=== PATIENT | female | born 1960 | race Caucasian/White ===

== ENCOUNTER 2016-09-12 04:04 | Emergency (ER) | payer OTHER ==
[~2016-09-12] VITALS: Ht 167.6 cm; Wt 63.6 kg
[~2016-09-12 04:04] MED LIST: CALC1TAB87 PO; DILT31TA PO; LEVOTAB PO; LISI-515 PO; OMEP20TA PO; POTA8TAB3 PO
[2016-09-12 04:12] VITALS: BP 141/81; PULSE 94; RESP 18; TEMP 98.6; O2SAT 99
[2016-09-12] MEDS ORDERED: FERR1TAB36 PO (04:15)
[2016-09-12] MEDS ORDERED: SODIUM CHLORIDE 0.9% FLUSH 5 ML FLUSH IVF PRN (04:15)
--- NOTE | 2016-09-12 04:27 | PD ---
HPI . Abdominal pain Chief Complaint: Abdominal Pain Time Seen by Provider: 04:06 Travel History International Travel<30 days: No Contact w/Intl Traveler<30days: No Traveled to known affect area: No History of Present Illness HPI Patient presents with the acute onset of abdominal pain. She denies any associated nausea or vomiting. She denies diarrhea. She denies urinary tract symptoms. She denies fever. 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) Diminished Hearing: No Endocrine: No Gastrointestinal Disorders: Yes (frequent diarrhea ) Genitourinary: Yes (incontinent at times ) Hypertension: Yes Immune Disorder: No Musculoskeletal: No Neurologic: Yes Psychiatric: No Reproductive: No Respiratory: No Past Surgical History Abdominal Surgery: Yes (appendectomy ) Gynecologic Surgery: Yes (hysterectomy ) Hysterectomy: Yes Social History Alcohol Use: No Tobacco Use: No Substance Use: No Allergies-Medications (Allergen,Severity, Reaction): Coded Allergies: Codeine (Verified Allergy, Unknown, 09/12/16) Reported Meds & Prescriptions Reported Meds & Active Scripts Active Potassium Chloride CR (Potassium Chloride) 8 Meq Tab 8 Meq PO DAILY Cardizem (Diltiazem HCl) 30 Mg Tab 30 Mg PO Q6HR Reported Iron (Ferrous Sulfate) 325 Mg Tab 325 Mg PO DAILY Take Calcium 600 with Vitamin D (Calcium Carbonate-Cholecalciferol) 600-400 mg-Unit Tab 2 Tab PO DAILY Levocetirizine 5 Mg Tab 5 Mg PO DAILY Omeprazole 20 Mg Tab 20 Mg PO BID Lisinopril 20 Mg Tab 20 Mg PO DAILY Review of Systems ROS Limitations: Poor Historian (patient is mentally retarded and possibly has autism.) Except as stated in HPI: all other systems reviewed are Neg General / Constitutional: No: Fever, Chills Respiratory: No: Cough, Shortness of Breath Gastrointestinal: Positive: Abdominal Pain, No: Nausea, Vomiting, Diarrhea Genitourinary: No: Urgency, Frequency, Dysuria Physical Exam Narrative GENERAL: This is a mentally challenged patient who is able to tell me what is bothering her tonight and who is able to answer simple yes/no questions. SKIN: Warm and dry. HEAD: Atraumatic. Normocephalic. EYES: Pupils equal and round. ENT: No nasal bleeding or discharge. Mouth is dry. NECK: Trachea midline. Neck is supple. CARDIOVASCULAR: Regular rate and rhythm. Heart sounds are normal. RESPIRATORY: No accessory muscle use. Lungs are clear with full air movement throughout. GASTROINTESTINAL: Abdomen soft, non-tender, nondistended. MUSCULOSKELETAL: No obvious deformities. No edema. NEUROLOGICAL: Awake and alert. No obvious cranial nerve deficits. Motor grossly within normal limits. Normal speech. PSYCHIATRIC: Appropriate mood and affect. Data Data Last Documented VS Vital Signs Date Time Temp Pulse Resp B/P Pulse Ox O2 Delivery O2 Flow Rate FiO2 09/12/16 04:12 98.6 94 18 141/81 99 Room Air Orders Complete Blood Count With Diff (09/12/16 04:13) Comprehensive Metabolic Panel (09/12/16 04:13) Lipase (09/12/16 04:13) Lactic Acid (09/12/16 04:13) Urinalysis - C+S If Indicated (09/12/16 04:13) Ct Abd/Pel W Iv Contrast(Rout) (09/12/16 04:13) Iv Access Insert/Monitor (09/12/16 04:13) Ecg Monitoring (09/12/16 04:13) Oximetry (09/12/16 04:13) Sodium Chloride 0.9% Flush (Ns Flush) (09/12/16 04:15) Iohexol 350 Inj (Omnipaque 350 Inj) (09/12/16 05:55) Labs Laboratory Tests Test 09/12/16 09/12/16 04:25 04:30 White Blood Count 7.6 TH/MM3 Red Blood Count 4.22 MIL/MM3 Hemoglobin 12.2 GM/DL Hematocrit 36.8 % Mean Corpuscular Volume 87.2 FL Mean Corpuscular Hemoglobin 28.9 PG Mean Corpuscular Hemoglobin 33.2 % Concent Red Cell Distribution Width 14.2 % Platelet Count 291 TH/MM3 Mean Platelet Volume 5.2 FL Neutrophils (%) (Auto) 64.2 % Lymphocytes (%) (Auto) 30.1 % Monocytes (%) (Auto) 4.6 % Eosinophils (%) (Auto) 0.8 % Basophils (%) (Auto) 0.3 % Neutrophils # (Auto) 4.9 TH/MM3 Lymphocytes # (Auto) 2.3 TH/MM3 Monocytes # (Auto) 0.3 TH/MM3 Eosinophils # (Auto) 0.1 TH/MM3 Basophils # (Auto) 0.0 TH/MM3 CBC Comment DIFF FINAL Differential Comment Sodium Level 137 MEQ/L Potassium Level 3.7 MEQ/L Chloride Level 103 MEQ/L Carbon Dioxide Level 26.9 MEQ/L Anion Gap 7 MEQ/L Blood Urea Nitrogen 15 MG/DL Creatinine 0.84 MG/DL Estimat Glomerular Filtration 70 ML/MIN Rate Random Glucose 119 MG/DL Lactic Acid Level 0.9 mmol/L Calcium Level 9.3 MG/DL Total Bilirubin 0.3 MG/DL Aspartate Amino Transf 17 U/L (AST/SGOT) Alanine Aminotransferase 18 U/L (ALT/SGPT) Alkaline Phosphatase 74 U/L Total Protein 7.4 GM/DL Albumin 3.3 GM/DL Lipase 171 U/L Urine Color YELLOW Urine Turbidity CLEAR Urine pH 6.0 Urine Specific [place] 1.010 Urine Protein NEG mg/dL Urine Glucose (UA) NEG mg/dL Urine Ketones NEG mg/dL Urine Occult Blood NEG Urine Nitrite NEG Urine Bilirubin NEG Urine Urobilinogen LESS THAN 2.0 MG/DL Urine Leukocyte Esterase TRACE Urine RBC 1 /hpf Urine WBC 3 /hpf Urine Squamous Epithelial 2 /hpf Cells Urine Bacteria RARE /hpf Urine Mucus FEW /lpf Microscopic Urinalysis Comment CULT NOT INDICATED MDM Medical Decision Making Medical Screen Exam Complete: Yes Emergency Medical Condition: Yes Medical Record Reviewed: Yes (patient was admitted here in mid June with sepsis, acute kidney injury, dehydration. CT of her abdomen was suggestive of ischemic colitis.) Differential Diagnosis Differential diagnosis of abdominal pain includes but is not limited to gastritis, pancreatitis, hepatitis, gastroenteritis, gallbladder disease, constipation, urinary retention, UTI, peptic ulcer disease, diverticulitis or appendicitis Narrative Course Patient presents for evaluation of the acute onset of upper abdominal pain. She has no associated symptoms. CBC has a normal white blood count. UA is negative. Chemistries are unremarkable. Lactic acid level is normal. CT-->"CONCLUSION: Question mild wall thickening involving portions of descending colon. This may reflect mild colitis." However, the patient has a normal white blood count and lactic acid. She has no complaints of diarrhea. Clinically, she does not have colitis. Patient states that she is feeling well at this point. Diagnosis Primary Impression: Abdominal pain Qualified Code: R10.13 - Epigastric pain Disposition: DISCHARGE HOME Condition: Stable Nataliia Loco MD Sep 12, 2016 04:27
[2016-09-12 04:38] LABS: AUTOMATED NEUTROPHIL # 4.9 TH/MM3 (1.8-7.7); BASOPHIL % 0.3 % (0.0-2.0); EOSINOPHIL # 0.1 TH/MM3 (0-0.4); EOSINOPHIL % 0.8 % (0.0-4.0); HEMATOCRIT 36.8 % (35.0-46.0); HEMO FLAGS DIFF FINAL; LYMPH % 30.1 % (9.0-44.0); LYMPHOCYTE # 2.3 TH/MM3 (1.0-4.8); MEAN CELL VOLUME 87.2 FL (80.0-100.0); MEAN CORPUSCULAR HEMOGLOBIN 28.9 PG (27.0-34.0); MEAN CORPUSCULAR HGB CONC 33.2 % (32.0-36.0); MONO % 4.6 % (0.0-8.0); NEUT % 64.2 % (16.0-70.0); PLATELET COUNT 291 TH/MM3 (150-450); RED BLOOD COUNT 4.22 MIL/MM3 (4.00-5.30); RED CELL DISTRIBUTION WIDTH 14.2 % (11.6-17.2); WHITE BLOOD COUNT 7.6 TH/MM3 (4.0-11.0)
[2016-09-12 04:48] LABS: BACTERIA, URINE RARE /hpf; BLOOD, URINE NEG (NEG); COMMENT (UR) CULT NOT INDICATED; CULTURE IF INDICATED CULT NOT INDICATED; GLUCOSE,URINE NEG (NEG); KETONE, URINE NEG (NEG); MUCUS URINE FEW /lpf (OCC); NITRITE,URINE NEG (NEG); SQUAMOUS EPITHELIAL CELL URINE 2 /hpf (0-5); URINE COLOR YELLOW (YELLW/STRAW)
[2016-09-12 04:59] LABS: ALT (GPT) 18 U/L (10-53); ANION GAP 7 MEQ/L (5-15); AST (GOT) 17 U/L (15-37); BICARBONATE 26.9 MEQ/L (21.0-32.0); BLOOD UREA NITROGEN 15 MG/DL (7-18); CHLORIDE 103 MEQ/L (98-107); GLOMERULAR FILTRATION RATE 70 ML/MIN (>89); POTASSIUM 3.7 MEQ/L (3.5-5.1); SODIUM (NA) 137 MEQ/L (136-145)
[2016-09-12 05:02] LABS: ALKALINE PHOSPHATASE 74 U/L (45-117); TOTAL BILIRUBIN ADULT 0.3 MG/DL (0.2-1.0)
[2016-09-12] MEDS ORDERED: IOHEXOL 350 MG/ML 10 ML VIAL (for RAD DIAG) IV ONE (05:55)
--- NOTE | 2016-09-12 06:07 | RADRPT ---
EXAM DATE/TIME: 09/12/2016 05:53 [facility] COMPARISON: CT ABDOMEN & PELVIS W/O CONTRAST, July 01, 2016, 13:03. INDICATIONS : Sudden onset of abdominal pain. IV CONTRAST: 66 cc Omnipaque 350 (iohexol) IV ORAL CONTRAST: No oral contrast ingested. RADIATION DOSE: 4.99 CTDIvol (mGy) MEDICAL HISTORY : Hypertension. SURGICAL HISTORY : Appendectomy. Hysterectomy. ENCOUNTER: Initial ACUITY: 1 day PAIN SCALE: 8/10 LOCATION: abdomen TECHNIQUE: Volumetric scanning of the abdomen and pelvis was performed. Using automated exposure control and ad justment of the mA and/or kV according to patient size, radiation dose was kept as low as reasonably achievable to obtain optimal diagnostic quality images. FINDINGS: LOWER LUNGS: The visualized lower lungs are clear. LIVER: Multiple hepatic cysts are again noted. No suspicious mass or biliary ductal dilatation. Multiple jordan cified gallstones aerated SPLEEN: Normal size without lesion. PANCREAS: Within normal limits. KIDNEYS: Normal in size and shape. There is no mass, stone or hydronephrosis. ADRENAL GLANDS: Within normal limits. VASCULAR: There is no aortic aneurysm. BOWEL/MESENTERY: May be mild wall thickening involving portions of the descending colon. The bowel structures otherwis e focally unremarkable. ABDOMINAL WALL: Within normal limits. RETROPERITONEUM: There is no lymphadenopathy. BLADDER: No wall thickening or mass. REPRODUCTIVE: Uterus surgically absent. No evidence of pelvic mass. Minimal free fluid. INGUINAL: There is no lymphadenopathy or hernia. MUSCULOSKELETAL: Within normal limits for patient age. CONCLUSION: Question mild wall thickening involving portions of descending colon. This may reflect mild colitis. Mick Harris MD on September 12, 2016 at 6:01 Board Certified Radiologist. This report was verified electronically.
== END 2016-09-12 09:34 | disposition home or self-care (01) ==
LOC: NEPC 04:04
DX: R10.9 Unspecified abdominal pain (principal); I10 Essential (primary) hypertension; F79 Unspecified intellectual disabilities
CPT/HCPCS: 74177; 80053; 81001; 83605; 83690; 85025; 99284; Q9967

== ENCOUNTER 2018-04-21 15:43 | Inpatient (IN) ==
--- NOTE | 2018-04-21 16:19 | ED ---
HPI General Chief Complaint: Fall Stated Complaint: fall/hit head History of Present Illness HPI Narrative: The patient was seen and examined in the presence of the nurse. This patient is brought in because she had a fall. She has history of mental retardation and frequent falls and uses a rolling walker. She she had dizzy and lightheaded and had a fall. She was using her walker at the time. She struck her left brow. Unclear if she lost consciousness. She does complain of a left-sided headache. No neck symptoms. She denies any chest pain or pressure or tightness or heaviness. He presents in A. fib with RVR. She takes no blood thinners. No alleviating factors. No exacerbating factors. Duration 3 hours Related Data Home Medications Medication Instructions Recorded Confirmed calcium carbonate-vitamin D3 2 tab PO DAILY 04/21/18 04/21/18 [Calcium 600 with Vitamin D3] cholecalciferol (vitamin D3) 1,000 unit PO DAILY 04/21/18 04/21/18 [Vitamin D3] levocetirizine 5 mg PO DAILY 04/21/18 04/21/18 omeprazole 20 mg PO BID 04/21/18 04/21/18 potassium chloride 8 meq PO DAILY 04/21/18 04/21/18 Allergies Allergy/AdvReac Type Severity Reaction Status Date / Time codeine Allergy Unknown Unverified 04/09/17 18:42 Review of Systems ROS: all other systems reviewed are negative [facility] Medical History Medical History GERD (gastroesophageal reflux disease) (Acute) H/O: hysterectomy (Acute) Mental retardation (Acute) Social History Social History Substance History: No History of Abuse Smoking Status: Never smoker How Often Do You Have a Drink Containing Alcohol: Never Recent Travel in [facility] within the Last 8 Weeks: No Recent Out of Country Travel within the Last 8 Weeks: No Exam Narrative Exam Narrative: GENERAL: Thin pleasant mentally challenged patient in no apparent distress. SKIN: Focused skin assessment reveals no rash and nodules. Skin is Warm and dry. HEAD: She has swelling and an abrasion at the left brow. Normocephalic. EYES: Pupils equal and round. No scleral icterus. No injection or drainage. ENT: No nasal bleeding or discharge. Mucous membranes pink and moist. NECK: Trachea midline. No JVD. No midline tenderness CARDIOVASCULAR: Irregularly irregular rhythm. No murmur appreciated. Heart rate 160 RESPIRATORY: No accessory muscle use. Clear to auscultation. Breath sounds equal bilaterally. GASTROINTESTINAL: Abdomen soft, non-tender, nondistended. Hepatic and splenic margins not palpable. MUSCULOSKELETAL: No obvious deformities. No clubbing. No cyanosis. No edema. NEUROLOGICAL: Awake and alert. No obvious cranial nerve deficits. Motor grossly within normal limits. Normal speech. PSYCHIATRIC: Appropriate mood and affect; insight and judgment poor . Course Initial Documented Vital Signs Temperature 97.9 F 04/21/18 15:48 Pulse Rate 85 04/21/18 15:48 Respiratory Rate 16 04/21/18 15:48 Blood Pressure 132/93 H 04/21/18 15:48 Pulse Oximetry 95 04/21/18 15:48 Last Documented Vital Signs Temperature 97.9 F 04/21/18 15:48 Pulse Rate 95 H 04/21/18 17:49 Respiratory Rate 16 04/21/18 17:49 Blood Pressure 119/77 04/21/18 17:49 Pulse Oximetry 98 04/21/18 17:49 Critical Care Time Critical Care Time: Yes Total Critical Care Time: 36 Attestation: Aggregate critical care time was 36 minutes. Time to perform other separately billable procedures was not included in the critical care time. My time did not include minutes spent treating any other patients simultaneously or on activities that did not directly contribute to the patient's treatment. The services I provided to this patient were to treat and/or prevent clinically significant deterioration that could result in: Cardiopulmonary arrest, cardiogenic shock, intracranial hemorrhage I provided critical care services requiring my management, as noted below: Chart data review, documentation time, medication orders and management, vital sign assessments/reviewing monitor data, ordering and reviewing lab tests, ordering and interpreting/reviewing x-rays and diagnostic studies, care of the patient and discussion of the patient with the admitting physicians. Medical Decision Making MDM Narrative Medical decision making narrative: IV placed and labs sent. I reviewed her EKG which shows A. fib with RVR and a rapid rate. As best I can tell if this is a new onset. I am giving her 15 mg IV Cardizem for rate control. Extended cardiac monitoring shows A. fib with RVR I ordered brain CT due to her traumatic injury On recheck she still has rapid A. fib but it is better than 160s. It is down to 130s-140. Giving her additional 10 mg IV Cardizem and starting a Cardizem drip which we will titrate to control her rate. She will require admission for new onset A. fib with RVR causing lightheadedness /possible syncope with fall and head injury. She is requiring IV Cardizem drip and multiple boluses to control her rate. At time of admission her heart rate is 100 on Cardizem drip. Labs are reviewed. CT is negative, I discussed with the hospitalist. Medical Screen Exam Complete: Yes Emergency Medical Condition: Yes Medical Records Medical records reviewed: Yes I reviewed the patient's medical records. Reviewed her history and physical cardiology consultation. There is no mention of atrial fibrillation. She had a sinus tachycardia at that time. Lab Data Lab results reviewed: Yes I reviewed the patient's lab results. Result diagrams: 04/21/18 16:33 04/21/18 16:33 Lab Results 04/21/18 04/21/18 Range/Units 16:33 16:33 CBC w Diff Auto diff final WBC 9.4 (4.0-11.0) th/mm3 RBC 4.99 (4.00-5.30) mil/mm3 Hgb 15.7 H (11.6-15.3) gm/dL Hct 45.0 (35.0-46.0) % MCV 90.2 (80.0-100.0) fL MCH 31.4 (27.0-34.0) pg MCHC 34.8 (32.0-36.0) % RDW 12.3 (11.6-17.2) % Plt Count 253 (150-450) th/mm3 MPV 6.6 L (7.0-11.0) fL Neut % (Auto) 79.7 H (16.0-70.0) % Lymph % (Auto) 15.3 (9.0-44.0) % Yell % (Auto) 4.3 (0.0-8.0) % Eos % (Auto) 0.3 (0.0-4.0) % Baso % (Auto) 0.4 (0.0-2.0) % Neut # (Auto) 7.6 (1.8-7.7) th/mm3 Lymph # (Auto) 1.4 (1.0-4.8) th/mm3 Yell # (Auto) 0.4 (0.0-0.9) th/mm3 Eos # (Auto) 0.0 (0.0-0.4) th/mm3 Baso # (Auto) 0.0 (0.0-0.2) th/mm3 WBC Differential . Differential Comment . Sodium 135 L (136-145) meq/L Potassium 3.9 (3.5-5.1) meq/L Chloride 102 (98-107) meq/L Carbon Dioxide 22.6 (21.0-32.0) meq/L Anion Gap 10 (5-15) meq/L BUN 14 (7-18) mg/dL Creatinine 0.94 (0.50-1.00) mg/dL Estimated GFR 61 L (>89) mL/min Random Glucose 119 H (74-106) mg/dL Calcium 9.3 (8.5-10.1) mg/dL Total Bilirubin 0.8 (0.2-1.0) mg/dL AST 25 (15-37) U/L ALT 16 (10-53) U/L Alkaline Phosphatase 85 (45-117) U/L Total Protein 8.0 (6.4-8.2) g/dL Albumin 3.9 (3.4-5.0) g/dL Imaging Data Radiologist's impression: Head CT 04/21/18 16:11 CONCLUSION: 1. No acute intracranial abnormality. . Discharge Plan Discharge Disposition Patient Disposition: 30 Still Patient Discharge Details Diagnosis: New onset a-fib, Atrial fibrillation with RVR Physicians Team ED Provider: Hever Samuel Primary Care Provider: Michael Lopez Rxs /Orders / Referrals /Forms Prescriptions: No Action cholecalciferol (vitamin D3) [Vitamin D3] 1,000 unit Capsule 1,000 unit PO DAILY RF: 0 potassium chloride 8 mEq Capsule, Extended Release 8 meq PO DAILY RF: 0 calcium carbonate-vitamin D3 [Calcium 600 with Vitamin D3] 600 mg(1,500mg) - 200 unit Tablet 2 tab PO DAILY RF: 0 omeprazole 20 mg Capsule,Delayed Release(Dr/Ec) 20 mg PO BID RF: 0 levocetirizine 5 mg Tablet 5 mg PO DAILY RF: 0 Discharge Interventions Interventions: Vital Signs Last Done: 04/21/18 17:49 Status ED Status: In Room
[2018-04-21 16:54] LABS: Baso % (Auto) 0.4 % (0.0-2.0); Eos % (Auto) 0.3 % (0.0-4.0); Hemoglobin 15.7 gm/dL (11.6-15.3); Lymph # (Auto) 1.4 th/mm3 (1.0-4.8); Lymph % (Auto) 15.3 % (9.0-44.0); Mean Corpuscular HGB Conc 34.8 % (32.0-36.0); Mean Corpuscular Hemoglobin 31.4 pg (27.0-34.0); Mean Corpuscular Volume 90.2 fL (80.0-100.0); Mean Platelet Volume 6.6 fL (7.0-11.0); Mono # (Auto) 0.4 th/mm3 (0.0-0.9); Mono % (Auto) 4.3 % (0.0-8.0); Neut # (Auto) 7.6 th/mm3 (1.8-7.7); Neut % (Auto) 79.7 % (16.0-70.0); Platelet Count 253 th/mm3 (150-450); Red Blood Count 4.99 mil/mm3 (4.00-5.30); Red Cell Distribution Width 12.3 % (11.6-17.2); White Blood Count 9.4 th/mm3 (4.0-11.0)
[2018-04-21] MEDS ORDERED: dilTIAZem Inj 125 MG in Sodium Chlor 0.9% Inj 100 ML IV.CONT PRN (16:57)
[2018-04-21 17:20] LABS: Chloride 102 meq/L (98-107); Sodium 135 meq/L (136-145)
[2018-04-21 17:23] LABS: Calcium 9.3 mg/dL (8.5-10.1)
[2018-04-21 17:24] LABS: Albumin 3.9 g/dL (3.4-5.0); Anion Gap 10 meq/L (5-15); Blood Urea Nitrogen 14 mg/dL (7-18); Carbon Dioxide 22.6 meq/L (21.0-32.0); Glucose,Random 119 mg/dL (74-106)
[2018-04-21 17:27] LABS: Alanine Aminotransferase 16 U/L (10-53); Aspartate Aminotransferase 25 U/L (15-37); Glomerular Filtration Rate 61 mL/min (>89)
[2018-04-21 17:30] LABS: Alkaline Phosphatase 85 U/L (45-117); Potassium 3.9 meq/L (3.5-5.1)
--- NOTE | 2018-04-21 17:48 | CT ---
EXAM DATE: 04/21/2018 5:44 PM EDT AGE/SEX: 57 years / Female INDICATIONS: Fell and hit head on floor. Left frontal soft tissue swelling. CLINICAL DATA: This is the patient's initial encounter. Patient reports that signs and symptoms have been present for 1 day and indicates a pain score of 0/10. MEDICAL/SURGICAL HISTORY: Gastroesophageal reflux disease. Hysterectomy. RADIATION DOSE: 53.47 CTDI (mGy) COMPARISON: No prior exams available for comparison. TECHNIQUE: CT of the head without contrast. Using automated exposure control and adjustment of the mA and/or kV according to patient size, radiation dose was kept as low as reasonably achievable to ob tain optimal diagnostic quality images. DICOM format image data is available electronically for revi ew and comparison. FINDINGS: Cerebrum: The ventricles are normal for age. No evidence of midline shift, mass lesion, hemorrhage o r acute infarction. No extraaxial fluid collections are seen. Posterior Fossa: The cerebellum and brainstem are intact. The 4th ventricle is midline. The cerebe llopontine angle is unremarkable. Extracranial: The visualized portion of the orbits is intact. Small left frontal scalp hematoma. Skull: The calvaria is intact. No evidence of skull fracture. CONCLUSION: 1. No acute intracranial abnormality. . Electronically signed by: Garret Sofia MD 04/21/2018 5:47 PM EDT
[2018-04-21] MEDS ORDERED: Bisacodyl 10 MG Supp RECTAL PRN (17:59)
[2018-04-21] MEDS ORDERED: Enoxaparin Inj 40 MG/0.4 ML Syringe SQ SCH (20:00)
[2018-04-21] MEDS: Acetaminophen 325 MG Tablet PO PRN (22:37)
[2018-04-22] MEDS: Acetaminophen 325 MG Tablet PO PRN
[2018-04-22] MEDS ORDERED: Metoprolol Tartrate 25 MG Tablet PO ONE (10:00)
--- NOTE | 2018-04-22 12:48 | P.HP ---
History of Present Illness Primary Care Physician: Michael Lopez MD Chief Complaint: Dizziness, lightheaded, Afib History of Present Illness: Ms. Bajwa is a pleasant 57-year-old female with a history of some level of mental retardation who presented to the emergency department on 04/21/2018 due to dizziness and lightheadedness and a fall. During ED evaluation she was found to have atrial fibrillation with RVR. She was subsequently given bolus diltiazem and also on diltiazem drip. At the time of this interview on 2017, patient is currently doing well. Denies any chest pain, shortness of breath, fever or chills. She denies any abdominal pain, any changes in bowel or bladder habits. She is off diltiazem drip and tolerating beta-matteo well. She is excited about going home. Family history: Mother had cancer and father had heart disease. Inpatient Certification: I certify that the inpatient services were ordered in accordance with Medicare regulations governing the order. This includes certification that hospital inpatient services are reasonable and necessary and in the case of services not specified as inpatient-only under 42 CFR 419.22(n), that they are appropriately provided as inpatient services in accordance to with the 2-midnight benchmark under 43 CFR 412.3(e) Estimated Total Length of Stay (Days): 3 Plans for Post Hospital Care: Home Review of Systems All other systems reviewed negative except as [facility] - History History Provided By: Patient, Medical Record - Medical / Surgical Hx Neg / Unobtainable Surgical History: No Previous Surgery - Medical History Medical History: Medical History (Last Updated 04/21/18 @ 16:59 by Zachary Alfaro RN) GERD (gastroesophageal reflux disease) H/O: hysterectomy Mental retardation - Tobacco History Smoking Status: Never smoker - Alcohol History How Often Do You Have a Drink Containing Alcohol: Never - Substance Use History Substance History: No History of Abuse - Travel History Recent Travel in the [place] Within the Last 8 Weeks: No Recent Travel Out of the Country Within the Last 8 Weeks: No - Immunization History Tetanus Immunization: Unsure Hx Influenza Vaccine This Season: Yes Medications and Allergies Active Medications: Active Medications Acetaminophen (Tylenol) 650 mg PO Q4H PRN PRN Reason: Headache, fever, pain 1-5 Last Admin: 04/22/18 00:00 Dose: 650 mg Al Hydroxide/Mg Hydroxide (Milk Of Magnesia Liq) 30 ml PO Q12H PRN PRN Reason: Mild Constipation Bisacodyl (Dulcolax Supp) 10 mg RECTAL DAILY PRN PRN Reason: SEVERE CONSITIPATION Enoxaparin Sodium (Lovenox Inj) 40 mg SQ Q24H [facility] Last Admin: 04/21/18 19:20 Dose: 40 mg Lactulose (Lactulose Liq) 30 ml PO DAILY PRN PRN Reason: SEVERE CONSITIPATION Metoprolol Tartrate (Lopressor) 25 mg PO BID [facility] Ondansetron HCl (Zofran Inj) 4 mg IV.PUSH Q6H PRN PRN Reason: NAUSEA OR VOMITING Sennosides (Senokot) 17.2 mg PO Q12H PRN PRN Reason: Moderate Constipation Allergies Allergy/AdvReac Type Severity Reaction Status Date / Time codeine Allergy Unknown UNK Verified 04/21/18 19:09 Home Medications Medication Instructions Recorded Confirmed Type calcium carbonate-vitamin D3 2 tab PO DAILY 04/21/18 04/21/18 History [Calcium 600 with Vitamin D3] cholecalciferol (vitamin D3) 1,000 unit PO DAILY 04/21/18 04/21/18 History [Vitamin D3] levocetirizine 5 mg PO DAILY 04/21/18 04/21/18 History omeprazole 20 mg PO BID 04/21/18 04/21/18 History potassium chloride 8 meq PO DAILY 04/21/18 04/21/18 History Exam Vital signs: Vital Signs 04/21/18 15:48 04/21/18 15:50 04/21/18 15:57 Temperature 97.9 F Pulse Rate 85 160 H 100 H Respiratory Rate 16 16 Blood Pressure 132/93 H 130/103 H 135/89 Pulse Oximetry 95 95 95 04/21/18 16:52 04/21/18 17:05 04/21/18 17:49 Temperature Pulse Rate 115 H 94 H 95 H Respiratory Rate 16 16 16 Blood Pressure 133/96 H 144/104 H 119/77 Pulse Oximetry 96 96 98 04/21/18 17:59 04/21/18 18:35 04/21/18 19:22 Temperature Pulse Rate 110 H 110 H 98 H Respiratory Rate 16 16 18 Blood Pressure 119/84 119/84 119/64 Pulse Oximetry 98 98 04/21/18 20:00 04/21/18 22:00 04/22/18 00:00 Temperature 98.4 F 98.6 F Pulse Rate 115 H 74 70 Respiratory Rate 20 16 Blood Pressure 129/91 H 111/71 Pulse Oximetry 96 97 04/22/18 02:00 04/22/18 04:00 Temperature 97.9 F Pulse Rate 74 78 Respiratory Rate 18 Blood Pressure 90/68 L Pulse Oximetry 99 Intake & Output 04/21/18 04/22/18 04/22/18 18:59 06:59 18:59 Intake Total 180 / 180 125 / 125 Output Total 1850 / 1850 Balance -1670 / -1670 125 / 125 Weight 61 kg 60.4 kg Intake: IV 125 / 125 Cardizem Inj 125 MG In NS Inj 125 / 125 100 ML @ 5 MG/HR 5 mls/hr IV. CONT TITRATE PRN Rx#:[id number] Oral 180 / 180 Output: Urine 1850 / 1850 Other: # Voids 2 # Bowel Movements 0 Narrative: GENERAL: This is a well-nourished, well-developed patient, in no apparent distress. SKIN: No rashes, ecchymoses or lesions. Warm and dry. HEAD: Atraumatic. Normocephalic. No temporal or scalp tenderness. EYES: Pupils equal round and reactive. No injection or drainage. ENT: Nose without bleeding, purulent drainage or septal hematoma. Airway patent. NECK: Trachea midline. No lymphadenopathy. Supple, nontender, no meningeal signs. CARDIOVASCULAR: Regular rate and rhythm without murmurs, gallops, or rubs. No JVD. RESPIRATORY: Clear to auscultation. Breath sounds equal bilaterally. No wheezes , rales, or rhonchi. GASTROINTESTINAL: Abdomen soft, non-tender, nondistended. No guarding. MUSCULOSKELETAL: Extremities without clubbing, cyanosis, or edema. NEUROLOGICAL: Awake and alert. Cranial nerves II through XII intact. No focal neurological deficits. Normal speech. Results - Labs CBC & Chem 7: 04/21/18 16:33 04/21/18 16:33 Labs: Laboratory Results - last 24 hr 04/21/18 04/21/18 16:33 16:33 CBC w Diff Auto diff final WBC 9.4 RBC 4.99 Hgb 15.7 H Hct 45.0 MCV 90.2 MCH 31.4 MCHC 34.8 RDW 12.3 Plt Count 253 MPV 6.6 L Neut % (Auto) 79.7 H Lymph % (Auto) 15.3 [place] % (Auto) 4.3 Eos % (Auto) 0.3 Baso % (Auto) 0.4 Neut # (Auto) 7.6 Lymph # (Auto) 1.4 [place] # (Auto) 0.4 Eos # (Auto) 0.0 Baso # (Auto) 0.0 WBC Differential . Differential Comment . Sodium 135 L Potassium 3.9 Chloride 102 Carbon Dioxide 22.6 Anion Gap 10 BUN 14 Creatinine 0.94 Estimated GFR 61 L Random Glucose 119 H Calcium 9.3 Total Bilirubin 0.8 AST 25 ALT 16 Alkaline Phosphatase 85 Total Protein 8.0 Albumin 3.9 - Imaging Impressions Head CT 04/21/18 16:11 CONCLUSION: 1. No acute intracranial abnormality. . Caprini VTE Risk Assessment Caprini VTE Risk Assessment: No/Low Risk (score <= 1) Caprini Risk Assessment Model: Point Value = 1 Point Value = 2 Point Value = 3 Point Value = 5 Age 41-60 Minor surgery BMI > 25 kg/m2 Swollen legs Varicose veins or History of unexplained or recurrent spontaneous Oral contraceptives or hormone replacement Sepsis (< 1 month) Serious lung disease, including pneumonia (< 1 month) Abnormal pulmonary function Acute myocardial infarction Congestive heart failure (< 1 month) History of inflammatory bowel disease Medical patient at bed rest Age 61-74 Arthroscopic surgery Major open surgery (> 45 min) Laparoscopic surgery (> 45 min) Malignancy Confined to bed (> 72 hours) Immobilizing plaster cast Central venous access Age >= 75 History of VTE Family history of VTE Factor V Leiden Prothrombin [id number] Lupus anticoagulant Anticardiolipin antibodies Elevated serum homocysteine Heparin-induced thrombocytopenia Other congenital or acquired thrombophilia Stroke (< 1 month) Elective arthroplasty Hip, pelvis, or leg fracture Acute spinal cord injury (< 1 month) Prophylaxis Regimen: Total Risk Factor Score Risk Level Prophylaxis Regimen 0-1 Low Early ambulation 2 Moderate Order ONE of the following: *Sequential Compression Device (SCD) *Heparin 5000 units SQ BID 3-4 Higher Order ONE of the following medications: *Heparin 5000 units SQ TID *Enoxaparin/Lovenox 40 mg SQ daily (WT < 150 kg, CrCl > 30 mL/min) *Enoxaparin/Lovenox 30 mg SQ daily (WT < 150 kg, CrCl > 10-29 mL/min) *Enoxaparin/Lovenox 30 mg SQ BID (WT < 150 kg, CrCl > 30 mL/min) AND/OR *Sequential Compression Device (SCD) 5 or more Highest Order ONE of the following medications: *Heparin 5000 units SQ TID (Preferred with Epidurals) *Enoxaparin/Lovenox 40 mg SQ daily (WT < 150 kg, CrCl > 30 mL/min) *Enoxaparin/Lovenox 30 mg SQ daily (WT < 150 kg, CrCl > 10-29 mL/min) *Enoxaparin/Lovenox 30 mg SQ BID (WT < 150 kg, CrCl > 30 mL/min) AND *Sequential Compression Device (SCD) Assessment and Plan - Plan Ms. Bajwa is a pleasant 57-year-old female with a history of mental retardation who was admitted to the hospital due to dizziness and lightheadedness as well as atrial fibrillation on evaluation in the ED. She was started on diltiazem drip and subsequently converted to sinus rhythm. Patient denies any chest pain, shortness of breath, fever or chills. Dizziness, lightheadedness - resolved. Atrial fibrillation with RVR -Patient received diltiazem drip in the ICU. -She converted to sinus rhythm and subsequently diltiazem was discontinued. -We started patient on metoprolol tartrate 25 mg twice daily. -[id number] score 1 (Female). Thus, we will recommend daily Aspirin 81mg Qday. Full code. Ambulation. Discharge patient to home Condition on discharge: Improved Regular Diet as tolerated Ad Sarah activity Rx written: Aspirin 81mg Qday. Follow-up with primary care physician within one week.
--- NOTE | 2018-04-22 16:18 | ECG ---
Date Performed: 04/21/2018 Time Performed: 16:15:33 PTAGE: 57 years EKG: ATRIAL FIBRILLATION WITH RAPID VENTRICULAR RESPONSE WITH ABERRANT CONDUCTION OR VENTRICULAR PREMATURE COMPLEXES MODERATE ST DEPRESSION Since the previous tracing, no significant change noted A BNORMAL ECG PREVIOUS TRACING : 07/08/2016 15.53 DOCTOR: Jordan Farnsworth Interpretating Date/Time 04/22/2018 16:16:10
[2018-04-22] MEDS ORDERED: Metoprolol Tartrate 25 MG Tablet PO SCH (21:00)
== END 2018-04-22 13:45 | disposition home or self-care (01) ==
LOC: PHED 15:43 → PHEDA 18:01 → PHICU 20:00
PROVIDERS: ADMIT Hospitalist; ATTEND Hospitalist